=== PATIENT | female | born 1980 | race African-American/Black ===

== ENCOUNTER 2019-02-17 09:07 | Emergency (ER) | payer OTHER ==
[~2019-02-17] VITALS: Ht 154.9 cm; Wt 80.3 kg
[2019-02-17 09:12] VITALS: BP 113/72
--- NOTE | 2019-02-17 09:20 | NUR ---
ED Nurse Note: Patient walked into ED c/o pain on the vaginal/urethra 03/03 after voiding. patient reports she finished anitibiotics prescribed by the primary care provider 1week ago. walked in to ED due to burning urination for 3 weeks. pt seen by PCP and finished antibiotic 1 week ago. patient reports the symptoms came back after she finished the antibiotic. patient does not recall the name of the antibiotic. patient is alert awake x4 ambulatory, breathing unlabored and even.
[2019-02-17 09:39] LABS: APPEARANCE,URINE SLIGHTLY CLOUDY; BILIRUBIN, URINE NEGATIVE (NEGATIVE); GLUCOSE, URINE (UA) NEGATIVE (NEGATIVE); KETONES,URINE NEGATIVE (NEGATIVE); LEUKOCYTE ESTERASE ,URINE 2+ (NEGATIVE); NITRITE,URINE NEGATIVE (NEGATIVE); PH,URINE 7 (4.5-8.0); PROTEIN,URINE 2+ (NEGATIVE); UROBILINOGEN,URINE NORMAL MG/DL (0.0-1.0)
[2019-02-17 09:41] LABS: COLOR,URINE RED
[2019-02-17] MEDS ORDERED: CEPHALEXIN500 MG ORAL (09:55)
--- NOTE | 2019-02-17 09:57 | Emergency Room Report ---
History of Present Illness General Chief Complaint: Female Urogenital Problems Source: Patient Present Illness HPI Patient is a 38-year-old female presents after increased dysuria as well as urinary frequency. Patient recently finished a course of antibiotics for urinary infection. She denies any vaginal discharge. She states that she had not been vomiting. She denies any fever. She reports of increased urinary frequency. Patient states that she had not been having any pain with walking. She denies any hematuria. Allergies: Coded Allergies: No Known Allergies (Unverified , 02/17/19) Patient History Past Medical History: see triage record Last Menstrual Period: 02/16/19 Reviewed Nursing Documentation: PMH: Agreed; PSxH: Agreed Nursing Documentation-PMH Past Medical History: No Stated History Review of Systems All Other Systems: negative except mentioned in HPI Physical Exam Vital Signs Date Time Temp Pulse Resp B/P (MAP) Pulse Ox O2 Delivery O2 Flow Rate FiO2 02/17/19 09:12 98.2 55 18 113/72 98 Room Air Sp02 EP Interpretation: reviewed, normal General Appearance: normal inspection, well appearing, no apparent distress, alert, GCS 15 Head: atraumatic ENT: normal ENT inspection, hearing grossly normal, normal voice Neck: normal inspection, full range of motion, supple, no bony tend Respiratory: normal inspection, lungs clear, normal breath sounds, no respiratory distress, no retraction, no wheezing Cardiovascular #1: regular rate, rhythm, no edema Gastrointestinal: normal inspection, normal bowel sounds, non tender, soft, no guarding, no hernia Genitourinary: no CVA tenderness Musculoskeletal: normal inspection, back normal, normal range of motion Neurologic: normal inspection, alert, oriented x3, responsive, 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 Differential diagnosis included was not limited to appendicitis, urinary tract infection, pelvic inflammatory disease, urethritis, herpes among others. Patient has a benign exam and does not appear to require any further imaging or laboratory testing at this time. Patient was noted to have what appears to be a urinary infection. She was noted to have some hematuria as well. Patient was given prescription for oral antibiotics. She is advised to return if any worsening condition. She appears to be stable for outpatient management. Labs Test 02/17/19 09:15 Urine Color Red Urine Appearance Slightly cloudy Urine pH 7 (4.5-8.0) Urine Specific [place] 1.005 (1.005-1.035) Urine Protein 2+ (NEGATIVE) Urine Glucose (UA) Negative (NEGATIVE) Urine Ketones Negative (NEGATIVE) Urine Blood 5+ (NEGATIVE) Urine Nitrite Negative (NEGATIVE) Urine Bilirubin Negative (NEGATIVE) Urine Urobilinogen Normal MG/DL (0.0-1.0) Urine Leukocyte Esterase 2+ (NEGATIVE) Urine RBC Tntc /HPF (0 - 2) Urine WBC 5-10 /HPF (0 - 2) Urine Squamous Epithelial Cells None /LPF (NONE/OCC) Urine Bacteria Occasional /HPF (NONE) Urine HCG, Qualitative Negative (NEGATIVE) Last Vital Signs Date Time Temp Pulse Resp B/P (MAP) Pulse Ox O2 Delivery O2 Flow Rate FiO2 02/17/19 09:12 98.2 55 18 113/72 (86) 98 Room Air Status: improved Disposition: HOME, SELF-CARE Condition: Stable Scripts Cephalexin* (KEFLEX*) 500 Mg Capsule 500 MG ORAL EVERY 12 HOURS, #14 CAP 0 Refills Prov: Andreas Moreno MD 02/17/19 Referrals: NON PHYSICIAN (PCP) Patient Instructions: Urinary Tract Infection Andreas Moreno MD Feb 17, 2019 09:57
[2019-02-17 10:08] VITALS: BP 113/72
--- NOTE | 2019-02-17 10:08 | NUR ---
ER DISCHARGE NOTE: Patient is cleared to be discharged per ERMD DR HARMON , pt is aox4, on room air, with stable vital signs. pt was given dc and prescription instructions, pt was able to verbalize understanding, pt id band removed without complications. pt is able to ambulate with steady gait. pt took all belongings.
== END 2019-02-17 10:08 | disposition home or self-care (01) ==
LOC: EMR 09:40
DX: N39.0 Urinary tract infection, site not specified (principal)
CPT/HCPCS: 81003; 81025; 99283

== ENCOUNTER 2019-03-05 18:07 | Emergency (ER) | payer OTHER ==
[~2019-03-05] VITALS: Ht 154.9 cm; Wt 72.6 kg
[~2019-03-05 18:07] MED LIST: CEPHALEXIN500 MG ORAL
[2019-03-05 18:16] VITALS: BP 115/76
--- NOTE | 2019-03-05 18:46 | Emergency Room Report ---
History of Present Illness General Chief Complaint: Female Urogenital Problems Source: Patient Present Illness HPI 38-year-old female with no significant past medical history here complaining of 3 days of dysuria and urinary frequency. Patient denies any vaginal discharge and pruritus. Denies any fever and chills, nausea vomiting. Denies suprapubic pain, flank pain. Patient has not taken medication for symptom relief. Patient reports that she has been sexually active with same partner however denies any vaginal discharge. Denies all other associated symptoms. Last menstrual period was 5 days ago. Allergies: Coded Allergies: No Known Allergies (Unverified , 02/17/19) Patient History Past Medical History: see triage record Past Surgical History: unable to obtain Pertinent Family History: none Last Menstrual Period: 02/15/2019 Now: No Immunizations: UTD Reviewed Nursing Documentation: PMH: Agreed; PSxH: Agreed Nursing Documentation-PMH Past Medical History: No Stated History Review of Systems All Other Systems: negative except mentioned in HPI Physical Exam Vital Signs Date Time Temp Pulse Resp B/P (MAP) Pulse Ox O2 Delivery O2 Flow Rate FiO2 03/05/19 18:16 98.8 68 15 115/76 (89) 99 Room Air Sp02 EP Interpretation: reviewed, normal General Appearance: no apparent distress, alert, GCS 15, non-toxic Head: normocephalic, atraumatic Eyes: bilateral eye normal inspection, bilateral eye PERRL ENT: normal ENT inspection Neck: normal inspection, full range of motion, supple Respiratory: chest non-tender, lungs clear, normal breath sounds, speaking full sentences Cardiovascular #1: regular rate, rhythm, no edema Gastrointestinal: normal bowel sounds, non tender, soft, non-distended, no guarding, no rebound Rectal: deferred Genitourinary: no CVA tenderness Neurologic: alert, oriented x3, responsive, motor strength/tone normal, sensory intact, speech normal Psychiatric: judgement/insight normal, memory normal, mood/affect normal, no suicidal/homicidal ideation Skin: no rash Lymphatic: normal inspection Medical Decision Making PA Attestation All diagnoses and treatment plans were reviewed and discussed with my supervising physician Dr. Esposito Diagnostic Impression: Primary Impression: UTI (urinary tract infection) ER Course 38-year-old female with no significant past medical history here complaining of 3 days of dysuria and urinary frequency. Patient denies any vaginal discharge and pruritus. Denies any fever and chills, nausea vomiting. Denies suprapubic pain, flank pain. Patient has not taken medication for symptom relief. Patient reports that she has been sexually active with same partner however denies any vaginal discharge. Denies all other associated symptoms. Last menstrual period was 5 days ago. Ddx considered but are not limited to: UTI, pylonephritis, urinary incontinence , prolapsed bladder Vital signs: are WNL, pt. is afebrile H&PE are most consistent with: Uncomplicated UTI ORDERS: UA, urine cx, Macrobid, Pyridium ED INTERVENTIONS: None required at this time. DISCHARGE: At this time pt. is stable for d/c to home. Will provide printed patient care instructions, and any necessary prescriptions. Care plan and follow up instructions have been discussed with the patient prior to discharge. Last Vital Signs Date Time Temp Pulse Resp B/P (MAP) Pulse Ox O2 Delivery O2 Flow Rate FiO2 03/05/19 18:16 98.8 15 115/76 99 Room Air 03/05/19 18:16 68 Disposition: HOME, SELF-CARE Condition: Stable Scripts Phenazopyridine Hcl* (PYRIDIUM*) 200 Mg Tablet 200 MG ORAL THREE TIMES A DAY for 2 Days, #6 TAB 0 Refills Prov: William Dickens 03/05/19 Nitrofurantoin Monohyd/M-Cryst* (MACROBID 100 MG*) 100 Mg Capsule 100 MG ORAL EVERY 12 HOURS for 7 Days, #14 CAP Prov: William Dickens 03/05/19 Patient Instructions: Urinary Tract Infection William Dickens Mar 05, 2019 18:46
[2019-03-05] MEDS ORDERED: NITROFURANTOIN100 M2 ORAL (18:47)
[2019-03-05] MEDS ORDERED: PHENAZOPYRIDIN200 MG ORAL (18:47)
[2019-03-05 18:52] VITALS: BP 115/76
--- NOTE | 2019-03-05 18:52 | NUR ---
ER DISCHARGE NOTE: Patient is cleared to be discharged per ERMD, pt is aox4, on room air, with stable vital signs. pt was given dc and prescription instructions, pt was able to verbalize understanding, pt id band removed. pt is able to ambulate with steady gait. pt took all belongings.
[2019-03-05 19:13] LABS: APPEARANCE,URINE CLEAR; BILIRUBIN, URINE NEGATIVE (NEGATIVE); COLOR,URINE PALE YELLOW; GLUCOSE, URINE (UA) NEGATIVE (NEGATIVE); KETONES,URINE NEGATIVE (NEGATIVE); LEUKOCYTE ESTERASE ,URINE 3+ (NEGATIVE); NITRITE,URINE NEGATIVE (NEGATIVE); PH,URINE 6 (4.5-8.0); PROTEIN,URINE 1+ (NEGATIVE); UROBILINOGEN,URINE NORMAL MG/DL (0.0-1.0)
== END 2019-03-05 18:52 | disposition home or self-care (01) ==
LOC: EMR 18:45
DX: N39.0 Urinary tract infection, site not specified (principal)
CPT/HCPCS: 81001; 87086; 87181; 99283

== ENCOUNTER 2019-10-05 18:18 | Emergency (ER) | payer OTHER ==
[~2019-10-05] VITALS: Ht 154.9 cm; Wt 74.8 kg
[~2019-10-05 18:18] MED LIST changes: +NITROFURANTOIN100 M2 ORAL; +PHENAZOPYRIDIN200 MG ORAL
[2019-10-05] MEDS ORDERED: Azithromycin 250mg tab ORAL ONE (18:45)
[2019-10-05] MEDS ORDERED: Lidocaine 1% MPF 10mg/ml 5ml INJ ONE (18:45)
[2019-10-05 18:48] LABS: APPEARANCE,URINE CLEAR; BILIRUBIN, URINE NEGATIVE (NEGATIVE); COLOR,URINE PALE YELLOW; GLUCOSE, URINE (UA) NEGATIVE (NEGATIVE); KETONES,URINE NEGATIVE (NEGATIVE); LEUKOCYTE ESTERASE ,URINE 1+ (NEGATIVE); NITRITE,URINE NEGATIVE (NEGATIVE); PH,URINE 6.5 (4.5-8.0); PROTEIN,URINE NEGATIVE (NEGATIVE); UROBILINOGEN,URINE NORMAL MG/DL (0.0-1.0)
[2019-10-05 18:57] VITALS: BP 114/78
--- NOTE | 2019-10-05 19:00 | NUR ---
ED Nurse Note: Pt walked into ED w/ c/o burning in urination. Pt is alert and orientedx4, ambulatory. daughter is present. Pt states shes been having white vaginal discharge. No redness or swelling in perineal area. Pt states she has had unprotected sex.
--- NOTE | 2019-10-05 19:05 | Emergency Room Report ---
History of Present Illness General Chief Complaint: Female Urogenital Problems Source: Patient Present Illness HPI 38-year-old female with no symptom past medical history here complaining of 2 days of painful urination and frequency of urination. Reports that few days ago she was sexually active and has some clear vaginal discharge. Does not know if partner is positive for any STD. Patient has her daughter here with her , and we used the language by referring to STD and not using the full name, patient said that it was okay to mention that were chlamydia and gonorrhea in front of her daughter. Patient wants treatment for chlamydia and gonorrhea prophylactically. Denies any flank pain, nausea vomiting, fever and chills. Denies any recent travel or coming, refill of travel. In no apparent distress and is afebrile COVID-19 risk:Travel to affect: No Has patient experienced vieira: No Allergies: Coded Allergies: No Known Allergies (Unverified , 02/17/19) Patient History Past Medical History: see triage record Past Surgical History: none Pertinent Family History: none Last Menstrual Period: 09/27/19 Now: No Immunizations: UTD Reviewed Nursing Documentation: PMH: Agreed; PSxH: Agreed Nursing Documentation-PMH Past Medical History: No Stated History Review of Systems All Other Systems: negative except mentioned in HPI Physical Exam Vital Signs Date Time Temp Pulse Resp B/P (MAP) Pulse Ox O2 Delivery O2 Flow Rate FiO2 10/05/19 18:42 97.5 68 16 117/72 (87) 97 Room Air Sp02 EP Interpretation: reviewed, normal General Appearance: no apparent distress, alert, GCS 15, non-toxic Head: normocephalic, atraumatic Eyes: bilateral eye normal inspection, bilateral eye PERRL ENT: hearing grossly normal, normal pharynx, no angioedema, normal voice Neck: full range of motion, supple/symm/no masses Respiratory: chest non-tender, lungs clear, normal breath sounds, no rhonchi, no retraction, no wheezing, speaking full sentences Cardiovascular #1: regular rate, rhythm, no edema, no murmur Gastrointestinal: non tender, soft, no mass, no bruit Genitourinary: no CVA tenderness Musculoskeletal: back normal, normal range of motion, gait/station normal, non- tender Neurologic: alert, motor strength/tone normal, oriented x3, sensory intact, responsive, speech normal Psychiatric: judgement/insight normal, memory normal, mood/affect normal, no suicidal/homicidal ideation Skin: no rash Lymphatic: no adenopathy Medical Decision Making PA Attestation All diagnoses and treatment plans were reviewed and discussed with my supervising physician Dr. Mendenhall Diagnostic Impression: Primary Impression: UTI (urinary tract infection) Additional Impression: Possible exposure to STD ER Course 38-year-old female with no symptom past medical history here complaining of 2 days of painful urination and frequency of urination. Reports that few days ago she was sexually active and has some clear vaginal discharge. Does not know if partner is positive for any STD. Patient has her daughter here with her , and we used the language by referring to STD and not using the full name, patient said that it was okay to mention that were chlamydia and gonorrhea in front of her daughter. Patient wants treatment for chlamydia and gonorrhea prophylactically. Denies any flank pain, nausea vomiting, fever and chills. Denies any recent travel or coming, refill of travel. In no apparent distress and is afebrile Ddx considered but are not limited to: UTI, pyelonephritis, urinary incontinence , prolapsed bladder, chlamydia and gonorrhea Vital signs: are WNL, pt. is afebrile H&PE are most consistent with: UTI, possible exposure to STD ORDERS: UA, urine cx, urine test, Macrobid, Pyridium ED INTERVENTIONS: Rocephin 250 mg IM, azithromycin p.o. DISCHARGE: At this time pt. is stable for d/c to home. Will provide printed patient care instructions, and any necessary prescriptions. Care plan and follow up instructions have been discussed with the patient prior to discharge. Patient take medication as directed, follow-up primary care provider, gave a list of STD clinics, if worsening symptoms return to emergency room condom use advised Last Vital Signs Date Time Temp Pulse Resp B/P (MAP) Pulse Ox O2 Delivery O2 Flow Rate FiO2 10/05/19 18:57 97.5 89 18 114/78 99 Room Air Disposition: HOME, SELF-CARE Condition: Stable Scripts Phenazopyridine Hcl* (PYRIDIUM*) 200 Mg Tablet 200 MG ORAL THREE TIMES A DAY for 2, #6 TAB 0 Refills Prov: William Dickens 10/05/19 Nitrofurantoin Monohyd/M-Cryst* (MACROBID 100 MG*) 100 Mg Capsule 100 MG ORAL EVERY 12 HOURS for 7 Days, #14 CAP Prov: William Dickens 10/05/19 Referrals: NON PHYSICIAN (PCP) Patient Instructions: Urinary Tract Infection Additional Instructions: Take medication as directed, follow-up primary care provider, condom use advised , if worsening symptoms return to emergency room William Dickens Oct 05, 2019 19:05
[2019-10-05] MEDS ORDERED: NITROFURANTOIN100 M2 ORAL (19:13)
[2019-10-05] MEDS ORDERED: PHENAZOPYRIDIN200 MG ORAL (19:13)
== END 2019-10-05 19:20 | disposition home or self-care (01) ==
LOC: EMR 18:45
DX: N39.0 Urinary tract infection, site not specified (principal)
CPT/HCPCS: 81003; 81025; 87086; 87181; 96372; J0696; Q0144; Z7502; 99283

== ENCOUNTER → 2020-01-11 | Emergency (ER) | payer OTHER ==
[~2020-01-11] VITALS: Ht 154.9 cm; Wt 72.6 kg
[~2020-01-11] MED LIST changes: +Phenazopyridine 200mg tab ORAL ONE
--- NOTE | 2020-01-11 17:27 | NUR ---
ED Nurse Note: urine collected, sent to labs.
[2020-01-11 17:30] VITALS: BP 128/87
--- NOTE | 2020-01-11 17:30 | NUR ---
ED Nurse Note: patient walked into ED from home c/o back pain and dysuria since 01/07/20. Pt is AOx4, VSS, on RA, afebrile on triage. Placed on RME.
--- NOTE | 2020-01-11 17:54 | Emergency Room Report ---
History of Present Illness General Chief Complaint: Female Urogenital Problems Source: Patient Present Illness HPI 39-year-old female presents to the emergency department complaining of 8 out of 10 severity dysuria x5 days. Patient denies hematuria she does report urinary frequency. Patient reports she just had her menstrual cycle over a week ago. Patient denies suspicion of at this time. She denies abdominal pain or tenderness. She denies nausea, vomiting, fevers, chills, constipation or diarrhea. She denies vaginal discharge, rashes, or genital lesions. She states she has had a UTI in the past which presented with similar symptoms. No other aggravating or relieving factors at this time. Allergies: Coded Allergies: No Known Allergies (Unverified , 02/17/19) COVID-19 Screening Contact w/high risk pt: No Recent Travel to affected area: No Experienced COVID-19 symptoms?: No COVID-19 Testing performed POLICE DETECTIVE: No Patient History Past Medical History: see triage record Past Surgical History: none Pertinent Family History: none Now: No Reviewed Nursing Documentation: PMH: Agreed; PSxH: Agreed Nursing Documentation-PMH Past Medical History: No Stated History Review of Systems All Other Systems: negative except mentioned in HPI Physical Exam Vital Signs Date Time Temp Pulse Resp B/P (MAP) Pulse Ox O2 Delivery O2 Flow Rate FiO2 01/11/20 17:16 99.0 69 17 128/87 (101) 100 Room Air Sp02 EP Interpretation: reviewed, normal General Appearance: no apparent distress, alert, GCS 15, non-toxic Head: normocephalic, atraumatic Eyes: bilateral eye normal inspection, bilateral eye PERRL ENT: hearing grossly normal, normal voice Neck: full range of motion Respiratory: chest non-tender, lungs clear, normal breath sounds, speaking full sentences Cardiovascular #1: regular rate, rhythm, no edema Gastrointestinal: normal bowel sounds, non tender, soft, non-distended, no guarding Rectal: deferred Genitourinary: normal inspection, no CVA tenderness Musculoskeletal: normal range of motion, gait/station normal, non-tender Neurologic: alert, motor strength/tone normal, oriented x3, sensory intact, responsive, speech normal Psychiatric: judgement/insight normal Skin: normal color Medical Decision Making PA Attestation Dr. Moreno is my supervising Physician whom patient management has been discussed with. Diagnostic Impression: Primary Impression: Urinary tract infection Qualified Codes: N30.00 - Acute cystitis without hematuria ER Course 39-year-old female presents to the emergency department complaining of 8 out of 10 severity dysuria x5 days. Patient denies hematuria she does report urinary frequency. Patient reports she just had her menstrual cycle over a week ago. Patient denies suspicion of at this time. She denies abdominal pain or tenderness. She denies nausea, vomiting, fevers, chills, constipation or diarrhea. She denies vaginal discharge, rashes, or genital lesions. She states she has had a UTI in the past which presented with similar symptoms. No other aggravating or relieving factors at this time. Ddx considered but are not limited to UTi , Pyelo, STI, Stone, Cystitis Vital signs: are WNL, pt. is afebrile H&PE are most consistent with UTI ORDERS: - UA labs are attached -- indicative of UTI ED INTERVENTIONS: - Pyridium PO . DISCHARGE: At this time pt. is stable for d/c to home. Will provide printed patient care instructions, and any necessary prescriptions. Care plan and follow up instructions have been discussed with the patient prior to discharge. Labs Test 01/11/20 17:27 Urine Color Pale yellow Urine Appearance Slightly cloudy Urine pH 8 (4.5-8.0) Urine Specific [place] 1.015 (1.005-1.035) Urine Protein 1+ (NEGATIVE) Urine Glucose (UA) Negative (NEGATIVE) Urine Ketones Negative (NEGATIVE) Urine Blood 2+ (NEGATIVE) Urine Nitrite Negative (NEGATIVE) Urine Bilirubin Negative (NEGATIVE) Urine Urobilinogen 1 MG/DL (0.0-1.0) Urine Leukocyte Esterase 1+ (NEGATIVE) Urine RBC 30-40 /HPF (0 - 2) Urine WBC 20-30 /HPF (0 - 2) Urine Squamous Epithelial Cells Few /LPF (NONE/OCC) Urine Bacteria Moderate /HPF (NONE) Urine HCG, Qualitative Negative (NEGATIVE) Last Vital Signs Date Time Temp Pulse Resp B/P (MAP) Pulse Ox O2 Delivery O2 Flow Rate FiO2 01/11/20 17:16 99.0 69 17 128/87 (101) 100 Room Air Disposition: HOME, SELF-CARE Condition: Stable Scripts Nitrofurantoin Monohyd/M-Cryst* (MACROBID 100 MG*) 100 Mg Capsule 100 MG ORAL EVERY 12 HOURS for 7 Days, #14 CAP Prov: Barbara Dominguez 01/11/20 Phenazopyridine Hcl* (PYRIDIUM*) 200 Mg Tablet 200 MG ORAL THREE TIMES A DAY for 3 Days, #9 TAB 0 Refills Prov: Barbara Dominguez 01/11/20 Patient Instructions: Urinary Tract Infection Additional Instructions: Take medications as directed. Follow up with a Primary Care Provider in 3-5 days, even if your symptoms have resolved. --Please review list of primary care clinics, if you do not already have a primary care provider Return sooner to ED if new symptoms occur, or current symptoms become worse. - Please note that this Emergency Department Report was dictated using [employer] helper technology software, occasionally this can lead to erroneous entry secondary to interpretation by the dictation equipment. Barbara Dominguez Jan 11, 2020 17:53
[2020-01-11 18:31] LABS: APPEARANCE,URINE SLIGHTLY CLOUDY; BILIRUBIN, URINE NEGATIVE (NEGATIVE); COLOR,URINE PALE YELLOW; GLUCOSE, URINE (UA) NEGATIVE (NEGATIVE); KETONES,URINE NEGATIVE (NEGATIVE); LEUKOCYTE ESTERASE ,URINE 1+ (NEGATIVE); NITRITE,URINE NEGATIVE (NEGATIVE); PH,URINE 8 (4.5-8.0); PROTEIN,URINE 1+ (NEGATIVE); UROBILINOGEN,URINE 1 MG/DL (0.0-1.0)
[2020-01-11 18:59] VITALS: BP 128/87
--- NOTE | 2020-01-11 18:59 | NUR ---
ER DISCHARGE NOTE: Patient is cleared to be discharged per ERPA, pt is aox4, on room air, with stable vital signs. pt was given dc and prescription instructions, pt was able to verbalize understanding, pt id band removed. pt is able to ambulate with steady gait. pt took all belongings.
== END | disposition home or self-care (01) ==
LOC: EMR 17:40
DX: N30.00 Acute cystitis without hematuria (principal)
CPT/HCPCS: 81003; 81025; 87086; 87181; Z7502; 99283